=== PATIENT | female | born 2005 | race Caucasian/White ===

== ENCOUNTER 2024-03-09 21:21 | Emergency (ER) | payer OTHER ==
[2024-03-09 22:02] LABS: Bilirubin Neg (Negative); Blood, Urine Negative (Negative); Glucose, Urine (Dipstick) Normal (Negative); Ketone, Urine Negative (Negative); Leukocyte 25 (Negative); Nitrite Negative (Negative); Protein, Urine (Dipstick) 30 mg/dl (Neg-Trace); Specific Gravity, Urine 1.015 (1.005-1.030)
[2024-03-09 22:08] LABS: Clarity Hazy (Clear); Pregnancy Test - Urine (BHCG) Negative (Negative); Pregu Control Background? CLEAR/WHITE (CLR/WHITE); Pregu Control Bar Appear? YES (CONTROL BAR); Specific Gravity 1.015 (1.002-1.036)
[2024-03-09 22:12] LABS: CAUTI Indications for Culture Pelvic or flank pain; RBC/HPF 0-3 HPF (0-3); Squamous Epithelial 0-3 HPF (0-3)
[2024-03-09 22:14] LABS: Bacteria/HPF 2+ HPF (None Seen); Mucous/LPF 1+ LPF (<2+)
[2024-03-09 22:16] LABS: Urine Culture Reflex No No
[2024-03-10] MEDS ORDERED: Morphine 4 MG/ML VIAL ONE (00:12)
[2024-03-10] MEDS ORDERED: Ondansetron PF 4 MG/2 ML Vial ONE (00:12)
[2024-03-10 00:33] LABS: #Basophils 0.05 10x3/uL (0.0-0.2); #Eosinophils 0.23 10x3/uL (0.0-0.5); #Monocytes 0.44 10x3/uL (0.0-1.1); %Basophils 0.8 % (0.0-2.0); %Eosinophils 3.7 % (0.0-6.0); %Lymphocytes 41.5 % (18.0-47.0); %Monocytes 7.1 % (0.0-10.0); %Neutrophils 46.7 % (40.0-75.0); Hematocrit 36.5 % (34.9-44.5); Hemoglobin 12.5 g/dL (12.0-15.5); Mean Corpuscular HGB CONC 34.2 g/dL (32.0-36.0); Mean Corpuscular Volume 81.8 fL (81.6-98.3); Mean Platelet Volume 9.5 fL (7.4-10.4); Platelet Count 280 10x3/uL (150-450); RBC Distribution Width 11.8 % (11.5-14.5); Red Blood Cell (RBC) Count 4.46 10x6/uL (3.90-5.03)
[2024-03-10 00:51] LABS: Anion Gap 10 mmol/L (10-20); BUN (Urea Nitrogen) 13 mg/dL (7.0-18.7); Calc. Creatinine Clearance 0 mL/min (70-130); Calcium 9.3 mg/dL (7.8-10.44); Carbon Dioxide 23 mmol/L (22-29); Chloride 110 mmol/L (98-107); Estimated GFR 128; Glucose 93 mg/dL (70-105); Potassium 3.9 mmol/L (3.5-5.1); Sodium 139 mmol/L (136-145)
== END 2024-03-10 05:50 | disposition home or self-care (01) ==
LOC: CSHERS 21:21
DX: R10.2 Pelvic and perineal pain (principal); Z87.891 Personal history of nicotine dependence
CPT/HCPCS: 74177; 76856; 80048; 81001; 81025; 85025; 96374; 96375; J2270; J2405